=== PATIENT | female | born 1960 | race Caucasian/White ===

== ENCOUNTER 2017-10-15 10:06 | Emergency (ER) | payer MEDICARE, MEDICAID ==
[~2017-10-15] VITALS: Ht 167.6 cm; Wt 71.1 kg
[~2017-10-15 10:06] MED LIST: SERT100T PO
[2017-10-15 10:09] VITALS: BP 115/74
== END 2017-10-15 13:17 | disposition home or self-care (01) ==
LOC: ED 13:04
DX: J42 Unspecified chronic bronchitis (principal); B97.89 Other viral agents as the cause of diseases classified elsewhere; G89.29 Other chronic pain; F17.200 Nicotine dependence, unspecified, uncomplicated
CPT/HCPCS: 71046; 99284

== ENCOUNTER 2018-08-05 11:23 | Emergency (ER) | payer MEDICARE, MEDICAID ==
[~2018-08-05] VITALS: Ht 167.6 cm; Wt 74.5 kg
[2018-08-05 11:32] VITALS: BP 130/76
== END 2018-08-05 12:36 | disposition home or self-care (01) ==
LOC: ED 12:30
DX: H01.001 Unspecified blepharitis right upper eyelid (principal); F17.200 Nicotine dependence, unspecified, uncomplicated
CPT/HCPCS: 99283

== ENCOUNTER 2018-10-10 19:07 | Emergency (ER) | payer MEDICARE, MEDICAID ==
[~2018-10-10] VITALS: Ht 167.6 cm; Wt 79.1 kg
--- NOTE | 2018-10-10 19:30 | NUR ---
PT REPORTS MID BACK PAIN X 4 DAYS WORSE WITH DEEP BREATHS AND MOVEMENT.
[2018-10-10 20:30] VITALS: BP 161/94
[2018-10-10] MEDS ORDERED: METHOCARBAMOL 750 MG TABLET PO ONE (20:30)
[2018-10-10] MEDS ORDERED: METHOCARBAMOL 750 MG TABLET ONE (20:32)
--- NOTE | 2018-10-10 20:42 | NUR ---
TASK RN: DC EDUCATION PROVIDED, PT DEMONSTRATES UNDERSTANDING. PT AMBULATED STEADILY TO DC WITH RN Addendum: 10/10/18 at 2044 by MARIEL PT REPORTS THAT DAUGHTER IS IN LOBBY AND WILL BE TRANSPORTING PT SAFELY HOME
== END 2018-10-10 20:47 | disposition home or self-care (01) ==
LOC: ED 19:48
DX: M62.830 Muscle spasm of back (principal); G89.29 Other chronic pain
CPT/HCPCS: 93005; 99283

== ENCOUNTER → 2019-01-03 | Outpatient (CLI) | payer MEDICARE, MEDICAID ==
[~2019-01-03] MED LIST changes: +ALBU18HF PO
== END | disposition home or self-care (01) ==
LOC: CFH 10:05
PROVIDERS: ATTEND Nurse Practitioner
DX: Z12.2 Encounter for screening for malignant neoplasm of respiratory organs (principal); K44.9 Diaphragmatic hernia without obstruction or gangrene; F17.210 Nicotine dependence, cigarettes, uncomplicated
CPT/HCPCS: G0297

== ENCOUNTER 2020-05-05 19:23 | Emergency (ER) | payer MEDICARE, MEDICAID ==
[~2020-05-05] VITALS: Ht 167.6 cm; Wt 72.0 kg
[2020-05-05] MEDS ORDERED: PANT20TA3 PO (19:36)
--- NOTE | 2020-05-05 20:00 | NUR ---
LATE ENTRY FOR 1999: PT LAYING IN BED RESPIRATIONS EVEN AND UNLABORED. PT ON 4L NC WHICH IS HER BASELINE. PT STATES SHE CALLED HOME HEALTH BECAUSE HER LEFT KNEE WAS CAUSING HER PAIN. THE HOME HEALTH NURSE TOLD HER TO CALL EMS BECAUSE THEY NOTICED INCREASE WOB. PT STATES SHE'S NOTICED IT HERSELF WITH [employer]IV[employer]. PT STATES SHE IS ABLE TO BED HER LEG AND WALK WITH HER KNEE, THIS RN HAS NOT WITNESSED.
--- NOTE | 2020-05-05 20:10 | NUR ---
PT TO IMAGING.
--- NOTE | 2020-05-05 20:38 | NUR ---
PT LAYING IN BED, NO SIGNS OF DISTRESS, TALKING WITH DAUGHTER WHO IS AT BEDSIDE.
[2020-05-05 21:09] VITALS: BP 137/88
== END 2020-05-05 21:29 | disposition home or self-care (01) ==
LOC: ED 21:26
DX: M25.462 Effusion, left knee (principal); R06.02 Shortness of breath; J44.9 Chronic obstructive pulmonary disease, unspecified
CPT/HCPCS: 71045; 99284

== ENCOUNTER 2020-12-30 00:40 | Emergency (ER) | payer MEDICARE, MEDICAID ==
[~2020-12-30] VITALS: Ht 167.6 cm; Wt 71.8 kg
[~2020-12-30 00:40] MED LIST changes: +PANT20TA4 PO
[2020-12-30] MEDS ORDERED: maalox/diphenh/lido/sucralfate 5 ML PO ONE (02:00)
[2020-12-30] MEDS ORDERED: LIDOCAINE 2% VISCOUS 15 ML UDC MM ONE (02:00)
--- NOTE | 2020-12-30 02:32 | NUR ---
patient cleared for discharge. verbalized understanding of self care and follow up care at home. patietn ambulatory to discharge with belongings wtihout complicaitons.
[2020-12-30 02:35] VITALS: BP 147/81
== END 2020-12-30 02:37 | disposition home or self-care (01) ==
LOC: ED 02:01
DX: B37.9 Candidiasis, unspecified (principal); G89.29 Other chronic pain
CPT/HCPCS: 99283

== ENCOUNTER 2021-01-24 10:02 | Outpatient (CLI) | payer MEDICARE, MEDICAID | END 2021-01-24 23:59 | disposition home or self-care (01) | LOC: CFH 10:02 | PROVIDERS: ATTEND Registered Nurse | DX: Z12.2 Encounter for screening for malignant neoplasm of respiratory organs (principal); J43.2 Centrilobular emphysema; R91.8 Other nonspecific abnormal finding of lung field; F17.210 Nicotine dependence, cigarettes, uncomplicated; J84.10 Pulmonary fibrosis, unspecified | CPT/HCPCS: 71271 ==

== ENCOUNTER 2021-02-01 10:33 | Emergency (ER) | payer MEDICARE, MEDICAID ==
[~2021-02-01] VITALS: Ht 170.2 cm; Wt 71.0 kg
--- NOTE | 2021-02-01 10:58 | NUR ---
LEGAL DOCUMENT SPECIALIST: PT TO ROOM FROM LOBBY
--- NOTE | 2021-02-01 11:11 | NUR ---
ASSUMED CARE OF PT AT THIS TIME. PT RESTING IN POSITION OF COMFORT IN [facility], STATES THAT SHE HAS PROVIDED A URINE SPECIMEN PRIOR TO BEING BROUGHT BACK TO ED ROOM. DENIES FURTHER NEEDS AT THIS TIME. CALL LIGHT W/IN REACH. PT INSTRUCTED ON USE, VERBALIZED UNDERSTANDING.
--- NOTE | 2021-02-01 11:20 | NUR ---
PT RESTING IN POSITION OF COMFORT IN [facility]. FALL PRECAUTIONS IN PLACE. VSS. PT AWAITING EVAL BY ED MD. PT DENIES NEEDS.
[2021-02-01] MEDS ORDERED: SODIUM CHLORIDE FLUSH 10ML SYR IVF ONE (11:30)
[2021-02-01] MEDS ORDERED: SODIUM CHLORIDE 0.9% 1,000ML IV ONE (11:30)
[2021-02-01] MEDS ORDERED: ONDANSETRON 2MG/ML, 2ML IVPush ONE (11:30)
[2021-02-01] MEDS ORDERED: HYDROmorphone 1 MG/ML, 1ML INJ IV ONE (11:30)
[2021-02-01] MEDS ORDERED: KETOROLAC 30 MG/1 ML IVPush ONE (11:30)
[2021-02-01] MEDS ORDERED: ONDANSETRON 2MG/ML, 2ML ONE (11:59)
[2021-02-01] MEDS ORDERED: KETOROLAC 30 MG/1 ML ONE (11:59)
[2021-02-01 12:04] LABS: BASOPHILS % (AUTO) 1 % (0-1); EOSINOPHILS % (AUTO) 1 % (1-7); LYMPHOCYTES % (AUTO) 27 % (22-44); MD NO; MEAN CORPUSCULAR HGB CONC 33.3 g/dL (32.4-35.8); MEAN PLATELET VOLUME 10.3 fL (7.4-10.4); MONOCYTES % (AUTO) 8 % (2-9); NEUTROPHILS % (AUTO) 63 % (42-75); PLATELET COUNT 283 x10^3/uL (130-400); RED BLOOD COUNT 5.06 x10^6/uL (3.82-5.3); RED CELL DISTRIBUTION WIDTH 14.4 % (9.6-15.2)
--- NOTE | 2021-02-01 12:05 | NUR ---
PT REPORTS 8/10 PAIN. MEDICATED ORDERED ON EMAR. PT REFUSED DILAUDID STATING THAT SHE DOES NOT WANT ANY NARCOTIC MEDICATIONS. PT HAS CONTINUES TO HAVE CONTINUOUS SPO2 MONITORING IN PLACE C Q1H BP. VSS. PT DENIES FURTHER NEEDS AT THIS TIME.
[2021-02-01 12:12] LABS: ALBUMIN 3.7 g/dL (3.4-5.0); ANION GAP 7 mmol/L (5-15); CALCIUM 8.9 mg/dL (8.5-10.1); CHLORIDE 108 mmol/L (98-107)
[2021-02-01 12:15] LABS: ALANINE AMINOTRANSFERASE 22 U/L (12-78); ALKALINE PHOSPHATASE 139 U/L (45-117); BILIRUBIN,TOTAL 0.5 mg/dL (0.2-1.0); CREATININE 0.89 mg/dL (0.55-1.02); TOTAL PROTEIN 7.2 g/dL (6.4-8.2)
[2021-02-01 12:27] LABS: MICROSCOPIC AUTO
--- NOTE | 2021-02-01 12:33 | NUR ---
PT IN RADIOLOGY.
[2021-02-01] MEDS ORDERED: CEFTRIAXONE 1,000 MG in DEXTROSE 5% 50 ML IVPB ONE (13:00)
[2021-02-01] MEDS ORDERED: AZITHROMYCIN 500 MG in SODIUM CHLORIDE 0.9% 250 ML IV ONE (13:00)
--- NOTE | 2021-02-01 13:17 | NUR ---
PT AMBULATORY TO RESTROOM WITHOUT ASSIST. PT STATES PAIN HAS IMPROVED TO A 3/10. PT SENT LAB AWAY FOR BLOOD CULTURE DRAW BECAUSE SHE NEEDED TO USE RESTROOM. WILL CALL LAB TO HAVE THEM COLLECT BC. WILL INITIATE ABX AFTER BC DRAW.
--- NOTE | 2021-02-01 14:01 | NUR ---
BEDSIDE REPORT TO LAZARO PLASENICA.
--- NOTE | 2021-02-01 14:02 | NUR ---
ASSUMED CARE OF PATIENT. REPORT GIVEN FROM ALFA RN
--- NOTE | 2021-02-01 14:42 | NUR ---
ABX RUNNING. VS STABLE. NO ACUTE DISTRESS NOTED. CALL LIGHT IN PLACE. WILL CONTINUE TO MONITOR.
--- NOTE | 2021-02-01 15:13 | NUR ---
SPOKE WITH DR MARR ABOUT PLAN OF CARE. PT TO BE DISCHARGED AFTER ABX. VS STABLE. CALL LIGHT IN PLACE. WILL CONTINUE TO MONITOR.
[2021-02-01 15:42] VITALS: BP 131/67
== END 2021-02-01 15:59 | disposition home or self-care (01) ==
LOC: ED 11:14
DX: J15.9 Unspecified bacterial pneumonia (principal); N39.0 Urinary tract infection, site not specified; R10.9 Unspecified abdominal pain; F17.200 Nicotine dependence, unspecified, uncomplicated; R11.2 Nausea with vomiting, unspecified
CPT/HCPCS: 36415; 74176; 80053; 81001; 83605; 83690; 85025; 87040; 87077; 87086; 87186; 96361; 96365; 96367; 96375; 99285; J0456; J0696; J1885; J2405; J7030; J7050

== ENCOUNTER 2021-04-16 02:40 | Emergency (ER) | payer MEDICARE, MEDICAID ==
[~2021-04-16] VITALS: Ht 167.6 cm; Wt 71.8 kg
--- NOTE | 2021-04-16 02:49 | NUR ---
PT TO LOBBY, WAIT TIME EXPLAINED. GAIT STEADY.
[2021-04-16 04:01] LABS: BASOPHILS % (AUTO) 1 % (0-1); EOSINOPHILS % (AUTO) 3 % (1-7); LYMPHOCYTES % (AUTO) 26 % (22-44); MEAN CORPUSCULAR HEMOGLOBIN 29.3 pg (27.0-34.8); MEAN PLATELET VOLUME 10.5 fL (7.4-10.4); MONOCYTES % (AUTO) 10 % (2-9); NEUTROPHILS % (AUTO) 62 % (42-75); PLATELET COUNT 271 x10^3/uL (130-400); RED BLOOD COUNT 4.85 x10^6/uL (3.82-5.3); RED CELL DISTRIBUTION WIDTH 13.3 % (9.6-15.2)
[2021-04-16 04:14] LABS: ALBUMIN 3.2 g/dL (3.4-5.0); ANION GAP 6 mmol/L (5-15); CHLORIDE 106 mmol/L (98-107)
[2021-04-16 04:19] LABS: ALANINE AMINOTRANSFERASE 26 U/L (12-78); ALKALINE PHOSPHATASE 161 U/L (45-117); BILIRUBIN,TOTAL 0.3 mg/dL (0.2-1.0); CREATININE 0.78 mg/dL (0.55-1.02); TOTAL PROTEIN 6.9 g/dL (6.4-8.2); TROPONIN I < 0.015 ng/mL (0.000-0.045)
[2021-04-16 05:30] VITALS: BP 146/87
== END 2021-04-16 05:48 | disposition home or self-care (01) ==
LOC: ED 05:41
DX: J44.1 Chronic obstructive pulmonary disease with (acute) exacerbation (principal); J18.9 Pneumonia, unspecified organism; R94.31 Abnormal electrocardiogram [ECG] [EKG]; I10 Essential (primary) hypertension; F17.200 Nicotine dependence, unspecified, uncomplicated
CPT/HCPCS: 36415; 71045; 80053; 83880; 84484; 85025; 93005; 99285